=== PATIENT | male | born 1980 | race Caucasian/White ===

== ENCOUNTER 2017-08-04 11:48 | Emergency (ER) | payer SELFPAY ==
[~2017-08-04] VITALS: Ht 182.9 cm; Wt 113.4 kg
[~2017-08-04 11:48] MED LIST: CEPH500C PO; DESV100T PO; HYDR1TAB PO; OLAN20TA3 PO
[2017-08-04] MEDS ORDERED: LACTATED RINGERS 1,000 ML IV ONE (13:09)
[2017-08-04] MEDS ORDERED: ONDANSETRON 4 MG/2 ML (SDV) Z0FRAN IVP ONE (13:15)
[2017-08-04] MEDS ORDERED: fentaNYL INJECTION 100 MCG/2 ML AMP IVP ONE (13:15)
--- NOTE | 2017-08-04 13:19 | ED Abdominal Pain ---
General Chief Complaint: Abdominal/GI Problems Stated Complaint: STOMACH CRAMPS/DIZZINESS Nursing Triage Note: ARRIVED VIA AMB TO ROOM 05. COMPLAINS OF SEVERE ABD PAIN WITH N/V STARTING TODAY. PT STATES FOR THE PAST MONTH HE HAS BEEN PASSING BRIGHT RED BLOOD IN HIS STOOL. 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 He also started having some waves of nausea after the pain started. He's never had a pain like this before and he denies any trauma or pain while lifting or doing his job. He is not anything abnormal recently. He denies any surgeries on his abdomen. He's vomited but had no blood in it. He says for the past several months he's had some blood in the stool both on wiping and in the water. Never had that worked up and he attributed to hemorrhoids. He is having no chest pain or shortness of breath. He's had no fevers, chills, diarrhea, constipation. A bowel movement yesterday was normal. Allergies and Home Medications Allergies Coded Allergies: No Known Drug Allergies (Verified , 06/07/08) Home Medications No Active Prescriptions or Reported Meds Review of Systems Constitutional: No chills, No fever EENTM: No Blurred Vision, No Double Vision Respiratory: Denies Cough, Denies Shortness of Air Cardiovascular: Denies Chest Pain, Denies Edema, Denies Palpitations, Denies Syncope Gastrointestinal: Denies Constipated, Denies Diarrhea, Nausea, Rectal Bleeding , Vomiting Genitourinary: Denies Burning, Denies Discharge Musculoskeletal: No back pain, No joint pain Skin: No pruritus, No rash Psychiatric/Neurological: Denies Headache, Denies Numbness Past Uilycfn-Tqhnym-Kkjcsg Hx Patient Social History Alcohol Use: Denies Use Recreational Drug Use: No Smoking Status: Never a Smoker Type Used: Electronic/Vapor Recent Foreign Travel: No Contact w/Someone Who Travel: No Recent Infectious Disease Expo: No Recent Hopitalizations: No Surgeries History of Surgeries: Yes (VASECTOMY) Respiratory History of Respiratory Disorde: No Cardiovascular History of Cardiac Disorders: No Neurological History of Neurological Disord: No Genitourinary History of Genitourinary Disor: No Gastrointestinal History of Gastrointestinal Di: No Musculoskeletal History of Musculoskeletal Dis: No Endocrine History of Endocrine Disorders: No HEENT History of HEENT Disorders: No Cancer History of Cancer: No Psychosocial History of Psychiatric Problem: No Integumentary History of Skin or Integumenta: No Physical Exam Vital Signs VS - Last 72 Hours, by Label 08/04/17 12:51 Temp 98.0 Pulse 86 Resp 18 B/P (MAP) 136/80 (98) Pulse Ox 98 O2 Delivery Room Air Capillary Refill : Less Than 3 Seconds General Appearance: WD/WN, moderate distress HEENT: PERRL/EOMI, normal ENT inspection, pharynx normal Neck: non-tender, supple, normal inspection Respiratory: chest non-tender, lungs clear, normal breath sounds, no respiratory distress, no accessory muscle use Cardiovascular: normal peripheral pulses, regular rate, rhythm, no edema Peripheral Pulses: 2+ Radial Pulses (R), 2+ Radial Pulses (L) Gastrointestinal: abnormal bowel sounds (hypoactive), guarding, No rebound, tenderness (especially mid epigastric and bilateral upper quadrants.), other ( negative for Gonzalez sign and no tenderness over McBurney's point.) Neurologic/Psychiatric: alert, oriented x 3 Skin: normal color, warm/dry Progress/Results/Core Measures Results/Orders Lab Results Laboratory Tests Test 08/04/17 13:10 08/04/17 14:35 Range/Units White Blood Count 15.3 H 4.3-11.0 10^3/uL Red Blood Count 5.33 4.35-5.85 10^6/uL Hemoglobin 15.8 13.3-17.7 G/DL Hematocrit 49 40-54 % Mean Corpuscular Volume 91 80-99 FL Mean Corpuscular Hemoglobin 30 25-34 PG Mean Corpuscular Hemoglobin Concent 32 32-36 G/DL Red Cell Distribution Width 13.8 10.0-14.5 % Platelet Count 307 130-400 10^3/uL Mean Platelet Volume 9.7 7.4-10.4 FL Neutrophils (%) (Auto) 91 H 42-75 % Lymphocytes (%) (Auto) 4 L 12-44 % Monocytes (%) (Auto) 5 0-12 % Eosinophils (%) (Auto) 0 0-10 % Basophils (%) (Auto) 0 0-10 % Neutrophils # (Auto) 13.9 H 1.8-7.8 X 10^3 Lymphocytes # (Auto) 0.5 L 1.0-4.0 X 10^3 Monocytes # (Auto) 0.8 0.0-1.0 X 10^3 Eosinophils # (Auto) 0.0 0.0-0.3 10^3/uL Basophils # (Auto) 0.0 0.0-0.1 10^3/uL Neutrophils % (Manual) 81 % Lymphocytes % (Manual) 8 % Monocytes % (Manual) 6 % Eosinophils % (Manual) 0 % Basophils % (Manual) 0 % Band Neutrophils 5 % Blood Morphology Comment NORMAL Sodium Level 143 135-145 MMOL/L Potassium Level 4.3 3.6-5.0 MMOL/L Chloride Level 106 98-107 MMOL/L Carbon Dioxide Level 25 21-32 MMOL/L Anion Gap 12 5-14 MMOL/L Blood Urea Nitrogen 18 7-18 MG/DL Creatinine 0.91 0.60-1.30 MG/DL Estimat Glomerular Filtration Rate > 60 BUN/Creatinine Ratio 20 Glucose Level 100 70-105 MG/DL Calcium Level 9.3 8.5-10.1 MG/DL Magnesium Level 1.9 1.8-2.4 MG/DL Total Bilirubin 1.1 H 0.1-1.0 MG/DL Aspartate Amino Transf (AST/SGOT) 20 5-34 U/L Alanine Aminotransferase (ALT/SGPT) 33 0-55 U/L Alkaline Phosphatase 76 40-136 U/L C-Reactive Protein High Sensitivity 0.67 H 0.00-0.50 MG/DL Total Protein 7.8 6.4-8.2 GM/DL Albumin 4.7 H 3.2-4.5 GM/DL Lipase 20 8-78 U/L Serum Alcohol < 10 <10 MG/DL Urine Color YELLOW Urine Clarity CLEAR Urine pH 5 5-9 Urine Specific [place] 1.020 1.016-1.022 Urine Protein NEGATIVE NEGATIVE Urine Glucose (UA) NEGATIVE NEGATIVE Urine Ketones 2+ H NEGATIVE Urine Nitrite NEGATIVE NEGATIVE Urine Bilirubin NEGATIVE NEGATIVE Urine Urobilinogen NORMAL NORMAL MG/DL Urine Leukocyte Esterase 1+ H NEGATIVE Urine RBC (Auto) NEGATIVE NEGATIVE Urine RBC 0-2 /HPF Urine WBC 0-2 /HPF Urine Squamous Epithelial Cells RARE /HPF Urine Crystals NONE /LPF Urine Bacteria NEGATIVE /HPF Urine Casts NONE /LPF Urine Mucus MODERATE H /LPF Urine Culture Indicated NO Urine Opiates Screen NEGATIVE NEGATIVE Urine Oxycodone Screen NEGATIVE NEGATIVE Urine Methadone Screen NEGATIVE NEGATIVE Urine Propoxyphene Screen NEGATIVE NEGATIVE Urine Barbiturates Screen NEGATIVE NEGATIVE Ur Tricyclic Antidepressants Screen NEGATIVE NEGATIVE Urine Phencyclidine Screen NEGATIVE NEGATIVE Urine Amphetamines Screen NEGATIVE NEGATIVE Urine Methamphetamines Screen NEGATIVE NEGATIVE Urine Benzodiazepines Screen NEGATIVE NEGATIVE Urine Cocaine Screen NEGATIVE NEGATIVE Urine Cannabinoids Screen POSITIVE H NEGATIVE My Orders Orders - JONEL SHAH Alcohol (08/04/17 13:09) Cbc With Automated Diff (08/04/17 13:09) Comprehensive Metabolic Panel (08/04/17 13:09) Hs C Reactive Protein (08/04/17 13:09) Drug Screen Stat (Urine) (08/04/17 13:09) Lipase (08/04/17 13:09) Magnesium (08/04/17 13:09) Ua Culture If Indicated (08/04/17 13:09) Saline Lock/Iv-Start (08/04/17 13:09) Lactated Ringers (Lr 1000 Ml Iv Solution (08/04/17 13:09) Fentanyl Injection (Sublimaze Injection (08/04/17 13:15) Ondansetron Injection (Zofran Injectio (08/04/17 13:15) Manual Differential (08/04/17 13:10) Ketorolac Injection (Toradol Injection) (08/04/17 14:30) Occult Blood Stool (08/04/17 14:47) Ct Abd/Pelv W (Appendicitis) (08/04/17 15:27) Iohexol Injection (Omnipaque 350 Mg/Ml 1 (08/04/17 16:15) Ns (Ivpb) (Sodium Chloride 0.9% Ivpb Bag (08/04/17 16:15) Medications Given in ED Current Medications Medications Dose Ordered Sig/Luis Route Start Time Stop Time Status Last Admin Dose Admin Fentanyl Citrate 50 mcg ONCE ONCE IVP 08/04/17 13:15 08/04/17 13:16 DC 08/04/17 13:25 50 MCG Iohexol 100 ml ONCE ONCE IV 08/04/17 16:15 08/04/17 16:17 DC 1/8/18 16:15 100 ML Ketorolac Tromethamine 15 mg ONCE ONCE IVP 08/04/17 14:30 08/04/17 14:32 DC 08/04/17 14:35 15 MG Lactated Ringer's 1,000 ml @ 0 mls/hr Q0M ONCE IV 08/04/17 13:09 08/04/17 13:15 DC 08/04/17 13:25 1,000 MLS/HR Ondansetron HCl 4 mg ONCE ONCE IVP 08/04/17 13:15 08/04/17 13:16 DC 08/04/17 13:24 4 MG Sodium Chloride 100 ml ONCE ONCE IV 08/04/17 16:15 08/04/17 16:17 DC 08/04/17 16:15 80 ML Vital Signs/I&O Vital Sign - Last 12Hours 08/04/17 12:51 Temp 98.0 Pulse 86 Resp 18 B/P (MAP) 136/80 (98) Pulse Ox 98 O2 Delivery Room Air Blood Pressure Mean: 98 Progress Note #1: Time: 13:18 Progress Note We'll get a fecal occult blood test, a sick labs to include a lipase, urinalysis. If there is blood in the urine will think about a kidney stone if his pain is not controlled with some fentanyl and Zofran for nausea and will get a CT scan of the abdomen with contrast. Progress Note #2: Time: 17:12 Progress Note Patient's pain and nausea are improved since he got here. His CT exam and lab exam are unrevealing. His disease then is most likely due to a virus probable gastroenteritis and likely eventually colitis. We have discussed appropriate therapy in order to try to go home with a couple days off and some medications for his pain and nausea and if this is not improving in 2-3 days he should follow-up with a primary care or urgent care. Diagnostic Imaging Diagonstic Imaging: CT (with contrast) Plain Films/CT/US/NM/MRI: abdomen, pelvis Comments NAME: GRIS MARTINEZ MED REC#: [id number] PHYSICIAN: JONEL SHAH MD CC: SILVIA ENGLE MD; JONEL SHAH Page 1 of 1 RADIOLOGY REPORT VIA [facility], [place], [place] CC: SILVIA ENGLE MD; JONEL SHAH Page 1 of 1 RADIOLOGY REPORT NAME: GRIS MARTINEZ [facility] REC#: [id number] PT STATUS: REG ER : 1980 PHYSICIAN: JONEL SHAH MD ADMIT DATE: 08/04/17/ER Signed Date of Exam: 08/04/17 CT ABD/PELV W (APPENDICITIS) PROCEDURE: CT abdomen and pelvis with contrast, rule out appendicitis. TECHNIQUE: Multiple contiguous axial images were obtained through the abdomen and pelvis after the administration of intravenous contrast. INDICATION: Bilateral flank pain. FINDINGS: Lung bases are clear. Liver is unremarkable. Gallbladder contains a small polyp and/or calculus on the inferior wall. The pancreas appears normal. The spleen has some small calcific granulomas. Adrenals are normal. There is no hydronephrosis near the kidney. There are no masses seen in the kidneys. There is no noncontrast study obtained so a small calculus near the kidney cannot be excluded. Aorta and IVC appear normal. There is no lymphadenopathy. The appendix is normal. Small bowel is not dilated. There is some diverticulosis of the colon but no evidence of diverticulitis. Urinary bladder, prostate and seminal vesicles appear normal. IMPRESSION: Uncomplicated diverticulosis of the colon. Small gallbladder polyp versus calculus. No acute abnormality seen. Dictated by: Dictated on workstation # [id number] Dict: 08/04/17 1628 Trans: 08/04/17 1654 Interpreted by: SILVIA ENGLE MD Electronically signed by: SILVIA ENGLE MD 08/04/17 1654 Reviewed: Reviewed by Me Departure Impression Impression: Primary Impression: Gastroenteritis Disposition: 01 HOME, SELF-CARE Condition: Stable Departure-Patient Inst. Decision time for Depature: 17:14 Referrals: NO,LOCAL PHYSICIAN (PCP/Family) Primary Care Physician Patient Instructions: Acute Abdomen (Belly Pain), Adult (DC), GASTROENTERITIS- 6Y-ADULT Add. Discharge Instructions: Your goal is drink plenty of fluids control your pain with Tylenol 1000 mg every 8 hours as needed and or ibuprofen 800 mg every 8 hours or Naprosyn/Aleve 2 capsules twice a day. If this does not control your pain you can use heating pads and creams as well as one tablet of hydrocodone every 6 hours as needed. Endocrine will cause constipation. If you just have the nausea vomiting and abdominal pain this will last about 2-3 days ago and its own. If you develop diarrhea that may add a day or 2. If you have diarrhea go ahead and continue to hydrate you're self and if he goes on for more than 24 hours you may take 2 tablets of loperamide/Imodium and then every 4 hours after that one more tablet until it is under control. If your pain or nausea ever become unbearable despite the medications or if you develop a fever above 102.5 that does not respond to Tylenol Motrin he should return to the ER for further evaluation. All discharge instructions reviewed with patient and/or family. Voiced understanding. Scripts Ondansetron (Ondansetron Odt) 4 Mg Tab.rapdis 4 MG PO Q6H Y for NAUSEA/VOMITING, #8 TAB 0 Refills Prov: JONEL SHAH 08/04/17 Hydrocodone Bit/Acetaminophen (Hydrocodone/Acetaminophen 5/325mg Tablet) 1 Tab Tab 1 EACH PO Q6H Y for BREAKTHROUGH PAIN, #15 TAB 0 Refills Prov: JONEL SHAH 08/04/17 Work/School Note: Work Release Form Date Seen in the Emergency Department: Aug 04, 2017 Return to Work: Aug 07, 2017 Restrictions: No Restrictions JONEL SHAH Aug 04, 2017 13:19
[2017-08-04 13:26] LABS: BASOPHILS % (AUTO) 0 % (0-10); EOSINOPHILS % (AUTO) 0 % (0-10); HEMATOCRIT 49 % (40-54); HEMOGLOBIN 15.8 G/DL (13.3-17.7); LYMPHOCYTES # (AUTO) 0.5 X 10^3 (1.0-4.0); LYMPHOCYTES % (AUTO) 4 % (12-44); MEAN CORPUSCULAR HEMOGLOBIN 30 PG (25-34); MEAN CORPUSCULAR HGB CONC 32 G/DL (32-36); MEAN CORPUSCULAR VOLUME 91 FL (80-99); MEAN PLATELET VOLUME 9.7 FL (7.4-10.4); MONOCYTES # (AUTO) 0.8 X 10^3 (0.0-1.0); MONOCYTES % (AUTO) 5 % (0-12); NEUTROPHILS # (AUTO) 13.9 X 10^3 (1.8-7.8); NEUTROPHILS % (AUTO) 91 % (42-75); PLATELET COUNT 307 10^3/uL (130-400); RED BLOOD COUNT 5.33 10^6/uL (4.35-5.85); RED CELL DISTRIBUTION WIDTH 13.8 % (10.0-14.5); WHITE BLOOD COUNT 15.3 10^3/uL (4.3-11.0)
[2017-08-04 13:44] LABS: ALANINE AMINOTRANSFERASE 33 U/L (0-55); ALBUMIN 4.7 GM/DL (3.2-4.5); ALKALINE PHOSPHATASE 76 U/L (40-136); BILIRUBIN,TOTAL 1.1 MG/DL (0.1-1.0); BUN/CREATININE RATIO 20; CALCIUM 9.3 MG/DL (8.5-10.1); CARBON DIOXIDE 25 MMOL/L (21-32); CHLORIDE 106 MMOL/L (98-107); CREATININE SERUM 0.91 MG/DL (0.60-1.30); GFR ESTIMATED > 60; GLUCOSE 100 MG/DL (70-105); LIPASE 20 U/L (8-78); MAGNESIUM 1.9 MG/DL (1.8-2.4); POTASSIUM 4.3 MMOL/L (3.6-5.0); SODIUM 143 MMOL/L (135-145); TOTAL PROTEIN 7.8 GM/DL (6.4-8.2)
[2017-08-04] MEDS ORDERED: KETOROLAC 30 MG/ML VIAL IVP ONE (14:30)
[2017-08-04 14:54] LABS: BILIRUBIN,URINE NEGATIVE (NEGATIVE); CLARITY,URINE CLEAR; COLOR,URINE YELLOW; GLUCOSE, URINE (UA) NEGATIVE (NEGATIVE); KETONES,URINE 2+ (NEGATIVE); LEUKOCYTE ESTERASE ,URINE 1+ (NEGATIVE); NITRITE,URINE NEGATIVE (NEGATIVE); PH,URINE 5 (5-9); PROTEIN,URINE NEGATIVE (NEGATIVE); UROBILINOGEN,URINE NORMAL (NORMAL)
[2017-08-04 15:03] LABS: BAND NEUTROPHILS 5 %; BASOPHILS % (MANUAL) 0 %; EOSINOPHILS % (MANUAL) 0 %; LYMPHOCYTES % (MANUAL) 8 %; MONOCYTES % (MANUAL) 6 %; NEUTROPHILS % (MANUAL) 81 %; RBC MORPH NORMAL
[2017-08-04 15:05] LABS: AMPHETAMINE SCREEN, URINE NEGATIVE (NEGATIVE); BARBITURATE SCREEN URINE NEGATIVE (NEGATIVE); BENZODIAZEPINES SCREEN URINE NEGATIVE (NEGATIVE); CANNABINOID SCREEN, URINE POSITIVE (NEGATIVE); COCAINE SCREEN URINE NEGATIVE (NEGATIVE); METHADONE STAT NEGATIVE (NEGATIVE); METHAMPHETAMINE SCREEN URINE S NEGATIVE (NEGATIVE); OPIATE SCREEN URINE NEGATIVE (NEGATIVE); OXYCODONE STAT NEGATIVE (NEGATIVE); PROPOXYPHENE STAT NEGATIVE (NEGATIVE); TRICYCLIC ANTIDEPRESSANTS SCRE NEGATIVE (NEGATIVE)
[2017-08-04 15:18] LABS: BACTERIA,URINE NEGATIVE /HPF; RBC,URINE 0-2 /HPF; SQUAMOUS EPITHELIAL CELL,UR RARE /HPF; WBC,URINE 0-2 /HPF
[2017-08-04] MEDS ORDERED: NS 100 ML (IVPB) BAG IV ONE (16:15)
[2017-08-04] MEDS ORDERED: IOHEXOL 350 MG/ML 100 ML (OMNIPAQUE 350) VIAL IV ONE (16:15)
--- NOTE | 2017-08-04 16:50 | Diagnostic Imaging Report ---
PROCEDURE: CT abdomen and pelvis with contrast, rule out appendicitis. TECHNIQUE: Multiple contiguous axial images were obtained through the abdomen and pelvis after the administration of intravenous contrast. INDICATION: Bilateral flank pain. FINDINGS: Lung bases are clear. Liver is unremarkable. Gallbladder contains a small polyp and/or calculus on the inferior wall. The pancreas appears normal. The spleen has some small calcific granulomas. Adrenals are normal. There is no hydronephrosis near the kidney. There are no masses seen in the kidneys. There is no noncontrast study obtained so a small calculus near the kidney cannot be excluded. Aorta and IVC appear normal. There is no lymphadenopathy. The appendix is normal. Small bowel is not dilated. There is some diverticulosis of the colon but no evidence of diverticulitis. Urinary bladder, prostate and seminal vesicles appear normal. IMPRESSION: Uncomplicated diverticulosis of the colon. Small gallbladder polyp versus calculus. No acute abnormality seen. Dictated by: Dictated on workstation # [id number]
[2017-08-04] MEDS ORDERED: ONDA4TAB11 PO (17:18)
[2017-08-04] MEDS ORDERED: ACHD5005 PO (17:18)
[2017-08-04 17:24] VITALS: BP 128/89
== END 2017-08-04 17:24 | disposition home or self-care (01) ==
LOC: EDUNIT# 11:48 → ER 11:50
DX: K52.9 Noninfective gastroenteritis and colitis, unspecified (principal); Z98.52 Vasectomy status
CPT/HCPCS: 36415; 74177; 80053; 80306; 80320; 81000; 83690; 83735; 85007; 85027; 86141; 96361; 96374; 96375

== ENCOUNTER 2018-01-25 09:45 | Emergency (ER) | payer SELFPAY ==
[~2018-01-25] VITALS: Ht 182.9 cm; Wt 95.3 kg
[~2018-01-25 09:45] MED LIST changes: +ACHD5005 PO; +ONDA4TAB11 PO
--- OUTSIDE RECORDS SUMMARY | 2018-01-25 09:50 | XMS REPORT ---
Author Author LOCO [facility] Address Unknown Care Team Providers Care Interior Plant Caretaker Name Role Phone AALIYAH LOCO Unavailable PROBLEMS Type Condition ICD9-CM Code BAE76-DQ Code Onset Dates Condition Status SNOMED Code Problem Bipolar disorder, unspecified 296.80 Active 36797597 Problem Anxiety state, unspecified 300.00 Active 774214457 Problem Encounter for long-term (current) use of other medications V58.69 Active 185525280 Problem Social phobia 300.23 Active 59042918 Problem Priapism 607.3 Active 4825783 ALLERGIES Substance Reaction Event Type Date Status N.K.D.A. Unknown Non Drug Allergy Jun, Unknown SOCIAL HISTORY No smoking Hx information available PLAN OF CARE Activity Details Follow Up prn Reason:hygiene VITAL SIGNS Blood pressure systolic 114 mmHg 2016-07-10 Blood pressure diastolic 74 mmHg 2016-07-10 MEDICATIONS No Known Medications RESULTS No Results PROCEDURES Procedure Date Ordered Related Diagnosis Body Site LTD ORAL EVALUATION - PROBLEM FOCUS Jul 10, 2016 INTRAORL-PERIAPICAL 1 FILM [id number] Jul 10, 2016 EXTRAC ERUPTED TOOTH/EXPOSED ROOT Jul 10, 2016 BITEWING - SINGLE FILM Jul 10, 2016 IMMUNIZATIONS No Known Immunizations
--- NOTE | 2018-01-25 10:45 | ED Upper Extremity ---
General Chief Complaint: Upper Extremity Stated Complaint: HAND INJURY Nursing Triage Note: TO ROOM REPORTS THAT WAS HELPING FRINED MOVE WHEN GOT HIS L HAND SMASHED BETWEEN DRESSER AND U HAIL. C/O PAIN IN L HAND. Nursing Sepsis Screen: No Definite Risk Exam Limitations: no limitations History of Present Illness Date Seen by Provider: Jan 25, 2018 Time Seen by Provider: 10:39 Initial Comments The patient reports that he was helping a friend move. A dresser became unbalanced and pinched him with the left hand between the dresser and the tail gate of the truck. He reports pain largely over the MP joint of the second finger. There is some pain to movement as well. Pain/Injury Location: left 2nd finger Method of Injury: direct blow Allergies and Home Medications Allergies Coded Allergies: No Known Drug Allergies (Verified , 06/07/08) Home Medications No Active Prescriptions or Reported Meds Patient Home Medication List Home Medication List Reviewed: Yes Constitutional: see HPI EENTM: no symptoms reported Cardiovascular: no symptoms reported Gastrointestinal: no symptoms reported Musculoskeletal: see HPI Past Vvqnttv-Znfrna-Kooxxt Hx Patient Social History Alcohol Use: Denies Use Recreational Drug Use: No Smoking Status: Current Everyday Smoker Type Used: Electronic/Vapor Recent Foreign Travel: No Contact w/Someone Who Travel: No Recent Infectious Disease Expo: No Recent Hopitalizations: No Past Medical History Surgeries: Yes (VASECTOMY) Respiratory: No Cardiac: No Neurological: No Genitourinary: No Gastrointestinal: No Musculoskeletal: No Endocrine: No HEENT: No Cancer: No Psychosocial: No Integumentary: No Physical Exam Vital Signs Vital Signs - First Documented 01/25/18 09:45 Temp 98.4 Pulse 79 Resp 18 B/P (MAP) 147/77 (100) Pulse Ox 97 O2 Delivery Room Air Capillary Refill : Less Than 3 Seconds General Appearance: WD/WN, no apparent distress Neck: full range of motion Cardiovascular: normal peripheral pulses, regular rate, rhythm, no edema, no gallop, no JVD, no murmur Respiratory: chest non-tender, lungs clear, normal breath sounds, no respiratory distress, no accessory muscle use Comments There is mild erythema and swelling over the MP joint of the dorsal aspect of the second finger on the left. Progress/Results/Core Measures Results/Orders My Orders Orders - GEOVANI COLEMAN MD Hand, Left, 3 Views (01/25/18 09:51) Vital Signs/I&O 01/25/18 09:45 Temp 98.4 Pulse 79 Resp 18 B/P (MAP) 147/77 (100) Pulse Ox 97 O2 Delivery Room Air Blood Pressure Mean: 100 Departure Communication (Admissions) Although the patient has tenderness over the left second MP joint, it would appear there is no injury found there. The x-rays that seemed to show a minimally displaced angular fracture at the proximal aspect of the distal phalanx of the thumb. There is no tenderness to this area to palpation Impression Primary Impression: contusion left hand Additional Impression: nondisplaced fracture of distal phalanx of the thumb Disposition: HOME, SELF-CARE Condition: Stable/Unchanged Departure-Patient Inst. Decision time for Depature: 10:44 Referrals: NO,LOCAL PHYSICIAN (PCP/Family) Primary Care Physician Add. Discharge Instructions: All discharge instructions reviewed with patient and/or family. Voiced understanding. Elevate hand above elbow when possible. Use ice pack 3 or 4 times today. Scripts No Active Prescriptions or Reported Meds GEOVANI COLEMAN MD Jan 25, 2018 10:45
[2018-01-25 10:50] VITALS: BP 147/77
--- NOTE | 2018-01-26 12:04 | Diagnostic Imaging Report ---
INDICATION: Smashed left hand one day earlier. Swelling to the second and third metacarpal regions. TECHNIQUE: 3 views left hand, 10:22 AM. CORRELATION STUDY: None FINDINGS: There is lucency involving the base of the distal phalanx of the thumb suspect for nondisplaced fracture. Appears to extend into the interphalangeal joint. The remaining osseous structures intact. Alignment otherwise anatomic. Mild joint space narrowing of the interphalangeal joint. IMPRESSION: 1. Findings suggestive of nondisplaced fracture involving the proximal phalanx of the thumb. Remaining osseous structures intact, otherwise unremarkable. Dictated by: Dictated on workstation # [id number]
== END 2018-01-25 10:50 | disposition home or self-care (01) ==
LOC: EDUNIT# 09:45 → ER 09:46
DX: S62.525A Nondisplaced fracture of distal phalanx of left thumb, initial encounter for closed fracture (principal); F17.210 Nicotine dependence, cigarettes, uncomplicated; Z98.52 Vasectomy status; W23.1XXA Caught, crushed, jammed, or pinched between stationary objects, initial encounter
CPT/HCPCS: 73130

== ENCOUNTER 2018-12-22 03:47 | Emergency (ER) | payer OTHER ==
[~2018-12-22] VITALS: Ht 182.9 cm; Wt 99.8 kg
--- OUTSIDE RECORDS SUMMARY | 2018-12-22 03:52 | XMS REPORT ---
Author Author Migration, Doctor Organization [facility] Address Unknown Phone Unavailable Care Team Providers Care Nuclear Weapons Specialist Name Role Phone Migration, Doctor Unavailable Unavailable PROBLEMS Type Condition ICD9-CM Code MGR22-MS Code Onset Dates Condition Status SNOMED Code Problem Bipolar disorder, current episode mixed, moderate F31.62 Active 482786451 Problem DALIA (generalized anxiety disorder) F41.1 Active 68078714 Problem Polydipsia R63.1 Active 86081193 ALLERGIES No Information ENCOUNTERS Encounter Location Date Diagnosis [place] [id number] [place] [address] Jan, [place] [id number] [place] [address] Jan, Bipolar disorder, current episode mixed, moderate F31.62 and DALIA (generalized anxiety disorder) F41.1 [place] [id number] [place] [address] Jan, [place] [id number] [place] [address] Jan, [facility], [place] [id number] [place] [address] Jan, [place] [id number] [place] [address] Jan, Bipolar disorder, current episode mixed, moderate F31.62 and DALIA (generalized anxiety disorder) F41.1 [facility], [place] [id number] [place] [address] Dec, Bipolar disorder, current episode mixed, moderate F31.62 [facility], [place] [address] [place] [address] Dec, Polydipsia R63.1 ; Bipolar disorder, current episode mixed, moderate F31.62 ; At risk for sexually transmitted disease due to unprotected sex Z91.89 ; Medication management Z79.899 and Weight loss R63.4 [facility] [address] [id number] 14 Jun, 2016 Dental examination Z01.20 and Dental caries K02.9 [facility], [place] [address], [place] [address] 14 Oct, 2014 [facility], [place] [id number] [place] [address] Oct, [facility], [place] [address] [place] [address] Mar, [facility], [place] [id number] [place] [address] Mar, [facility], [place] [id number] [place] [address] Mar, [facility], [place] [id number] [place] [address] Mar, [facility], [place] [address] [place] [address] Feb, [facility], [place] [id number] [address] Feb, [facility], [place] [address], [place] [address] Jan, [facility], [place] [address], [place] [address] Jan, [facility], [place] [address] [place] [address] Dec, [facility], [place] [id number] [place] [address] Dec, [facility], [place] [address], [place] [address] Dec, [facility] [place] [facility] [address] [id number] [place] [address] Dec, [facility] [place] [facility] [address] [id number] [place] [address] November, [facility] [place] [facility] [address] [id number] [place] [address] November, [facility] [place] [facility] [address] [id number] [place] [address] Oct, [facility] [place] [facility] [address] [id number] [place] [address] Oct, [facility] [place] [facility] [address] [id number] [place] [address] Oct, [facility] [place] [facility] [address] [id number] [place] [address] Oct, [facility] [place] [facility] [address] [id number] [place] [address] Oct, [facility] [place] [facility] [address] [id number] [place] [address] Oct, [facility] [place] [facility] [address] [id number] [place] [address] Oct, [facility] [place] [facility] [address] [id number] [place] [address] Oct, [facility] [place] [facility] [address] [id number] [place] [address] Oct, [facility] [place] [facility] [address] [id number] [place] [address] Oct, [facility] [place] [facility] [address] [id number] [place] [address] Oct, [facility] [place] [facility] [address] [id number] [place] [address] Oct, [facility] [place] [facility] [address] [id number] [place] [address] Oct, [facility], [place] [address] [facility] [id number] [place] [address] Oct, IMMUNIZATIONS No Known Immunizations SOCIAL HISTORY Never Assessed REASON FOR VISIT [facility] [place] PLAN OF CARE VITAL SIGNS MEDICATIONS Medication Instructions Dosage Frequency Start Date End Date Duration Status Loxapine Succinate 10 mg 1 Capsule by Oral route 2 times per day Dec, Active Vistaril 25 mg 1 capsule by Oral route 2 times per day anxiety Jan, Active [place] Carbonate 300 mg 1 capsule by Oral route 1 time per day qAM2 Capsule by Oral route 1 time per day qHS Dec, Active RESULTS No Results PROCEDURES No Known procedures INSTRUCTIONS MEDICATIONS ADMINISTERED No Known Medications MEDICAL (GENERAL) HISTORY Type Description Date Medical History bipolar disorder Medical History hx of head concussions Surgical History vasectomy 12/2004 Hospitalization History [facility] for attempted suicide 07/2003
--- OUTSIDE RECORDS SUMMARY | 2018-12-22 03:52 | XMS REPORT ---
Author Author Migration, Doctor Organization [facility] Address Unknown Phone Unavailable Care Team Providers Care Customs Entry Clerk Name Role Phone Migration, Doctor Unavailable Unavailable PROBLEMS Type Condition ICD9-CM Code TOR97-HI Code Onset Dates Condition Status SNOMED Code Problem Bipolar disorder, current episode mixed, moderate F31.62 Active 634860537 Problem DALIA (generalized anxiety disorder) F41.1 Active 69187586 Problem Polydipsia R63.1 Active 55745565 ALLERGIES No Information ENCOUNTERS Encounter Location Date Diagnosis [place] [id number] [place] [address] Jan, [place] [id number] [place] [address] Jan, Bipolar disorder, current episode mixed, moderate F31.62 and DALIA (generalized anxiety disorder) F41.1 [place] [id number] [place] [address] Jan, [place] [id number] [place] [address] Jan, [facility] [id number] [place] [address] Jan, [place] [id number] [place] [address] Jan, Bipolar disorder, current episode mixed, moderate F31.62 and DALIA (generalized anxiety disorder) F41.1 [facility] [id number] [place] [address] Dec, Bipolar disorder, current episode mixed, moderate F31.62 [facility] [address] [place] [address] Dec, Polydipsia R63.1 ; Bipolar disorder, current episode mixed, moderate F31.62 ; At risk for sexually transmitted disease due to unprotected sex Z91.89 ; Medication management Z79.899 and Weight loss R63.4 [facility] [address] [id number] 14 Jun, 2016 Dental examination Z01.20 and Dental caries K02.9 [facility] [address], [place] [address] 14 Oct, 2014 [facility] [id number] [place] [address] Oct, [facility] [id number] [place] [address] Mar, [facility] [id number] [place] [address] Mar, [facility] [id number] [place] [address] Mar, [facility] [id number] [place] [address] Mar, [facility] [address] [place] [address] Feb, [facility] [id number], [place] [address] Feb, [facility] [address], [place] [address] Jan, [facility] [address], [place] [address] Jan, [facility] [id number] [place] [address] Dec, [facility] [id number] [place] [address] Dec, [facility] [address], [place] [address] Dec, [facility] [place] [facility] [address] [id number] [place] [address] Dec, [facility] [place] [facility] [address] [id number] [place] [address] November, [facility] [place] [facility] [address] [id number] [place] [address] November, [facility] [place] [facility] [address] [id number] [place] [address] Oct, [facility] [place] [facility] [address] [id number] [place] [address] Oct, [facility] [place] [facility] [address] [id number] [place] [address] Oct, [facility] [place] [facility] [address] [id number] [place] [address] Oct, [facility] [place] [facility] [address] [id number] [place] [address] Oct, [facility] [place] [facility] [address] [id number] [place] [address] Oct, [facility] [place] [facility] [address] [id number] [place] [address] Oct, [facility] [place] [facility] [address] [id number] [place] [address] Oct, [facility] [place] [facility] [address] [id number] [place] [address] Oct, [facility] [place] [facility] [address] [id number] [place] [address] Oct, [facility] [place] [facility] [address] [id number] [place] [address] Oct, [facility] [place] [facility] [address] [id number] [place] [address] Oct, [facility] [place] [facility] [address] [id number] [place] [address] Oct, [facility] [address] [facility] [id number] [place] [address] Oct, IMMUNIZATIONS No Known Immunizations SOCIAL HISTORY Never Assessed REASON FOR VISIT [facility] PLAN OF CARE VITAL SIGNS MEDICATIONS Unknown Medications RESULTS No Results PROCEDURES No Known procedures INSTRUCTIONS MEDICATIONS ADMINISTERED No Known Medications MEDICAL (GENERAL) HISTORY Type Description Date Medical History bipolar disorder Medical History hx of head concussions Surgical History vasectomy 12/2004 Hospitalization History gonz[facility] for attempted suicide 07/2003
--- OUTSIDE RECORDS SUMMARY | 2018-12-22 03:53 | XMS REPORT ---
Author Author FRANCESCA MANCINI [facility] Address [address] [place] [address] Care Team Providers Care Ground Systems Engineer Name Role Phone FRANCESCA MANCINI Unavailable PROBLEMS Type Condition ICD9-CM Code IZJ77-VI Code Onset Dates Condition Status SNOMED Code Problem DALIA (generalized anxiety disorder) F41.1 Active 87494538 Problem Bipolar disorder, current episode mixed, moderate F31.62 Active 776338630 Problem Polydipsia R63.1 Active 42578681 ALLERGIES No Information ENCOUNTERS Encounter Location Date Diagnosis [place] [address] [place] [address] Jan, [facility] [id number] [place] [address] Jan, Bipolar disorder, current episode mixed, moderate F31.62 and DALIA (generalized anxiety disorder) F41.1 [place] [id number] [place] [address] Jan, [place] [address] [place] [address] Jan, [facility] [id number] [place] [address] Jan, [facility] [id number] [place] [address] Jan, Bipolar disorder, current episode mixed, moderate F31.62 and DALIA (generalized anxiety disorder) F41.1 [facility] [address] [place] [address] Dec, Bipolar disorder, current episode mixed, moderate F31.62 [facility] [id number] [place] [address] Dec, Polydipsia R63.1 ; Bipolar disorder, current episode mixed, moderate F31.62 ; At risk for sexually transmitted disease due to unprotected sex Z91.89 ; Medication management Z79.899 and Weight loss R63.4 [facility] [id number] [id number] 14 Jun, 2016 Dental examination Z01.20 and Dental caries K02.9 [facility] [address], [place] [address] 14 Oct, 2014 [facility] [address], [place] [address] Oct, [facility] [address] [place] [address] Mar, [facility] [address], [place] [address] Mar, [facility] [address], [place] [address] Mar, [facility] [id number] [address] Mar, [facility] [address], [place] [address] Feb, [facility] [address], [place] [address] Feb, [facility] [address], [place] [address] Jan, [facility] [id number], [place] [address] Jan, [facility] [address], [place] [address] Dec, [facility] [id number], [place] [address] Dec, [facility] [place] [facility] [address] [id number] [place] [address] Dec, [facility] [address] [id number] [place] [address] Dec, [facility] [place] [facility] [address] [id number] [place] [address] November, [facility] [address] [id number] [place] [address] November, [facility] [place] [facility] [address] [id number] [place] [address] Oct, [facility] [place] [facility] [address] [id number] [place] [address] Oct, [facility] [place] [facility] [address] [id number] [place] [address] Oct, [facility] [address] [id number] [place] [address] Oct, [facility] [address] [id number] [place] [address] Oct, [facility] [place] [facility] [address] [id number] [place] [address] Oct, [facility] [address] [id number] [place] [address] Oct, [facility] [place] [facility] [address] [id number] [place] [address] Oct, [facility] [place] [facility] [address] [id number] [place] [address] Oct, [facility] [place] [facility] [address] [id number] [place] [address] Oct, [facility] [place] [facility] [address] [id number] [place] [address] Oct, [facility] [place] [facility] [address] [id number] [place] [address] Oct, [facility] [address] [facility] [id number] [place] [address] Oct, [facility] [address] [facility] [id number] [place] [address] Oct, IMMUNIZATIONS No Known Immunizations SOCIAL HISTORY Never Assessed REASON FOR VISIT intake PLAN OF CARE Activity Details Follow Up Next Available Reason: F/U VITAL SIGNS MEDICATIONS Unknown Medications RESULTS No Results PROCEDURES Procedure Date Ordered Result Body Site Psych diagnostic evaluation, established patient January 21, 2018 INSTRUCTIONS MEDICATIONS ADMINISTERED No Known Medications MEDICAL (GENERAL) HISTORY Type Description Date Medical History bipolar disorder Medical History hx of head concussions Surgical History vasectomy 12/2004 Hospitalization History gonzales for attempted suicide 07/2003
--- OUTSIDE RECORDS SUMMARY | 2018-12-22 03:53 | XMS REPORT ---
Author Author NUBIA PHIL [facility] Address [address] [place] [address] Care Team Providers Care Informaticist Name Role Phone NUBIAPHIL Unavailable PROBLEMS Type Condition ICD9-CM Code TOW48-SH Code Onset Dates Condition Status SNOMED Code Problem DALIA (generalized anxiety disorder) F41.1 Active 80506407 Problem Bipolar disorder, current episode mixed, moderate F31.62 Active 720340286 Problem Polydipsia R63.1 Active 06819234 ALLERGIES No Known Allergies ENCOUNTERS Encounter Location Date Diagnosis [place] [id number] [place] [address] Jan, [facility] [id number] [place] [address] Jan, Bipolar disorder, current episode mixed, moderate F31.62 and DALIA (generalized anxiety disorder) F41.1 [facility] [id number] [place] [address] Jan, [place] [id number] [place] [address] Jan, [facility] [id number] [place] [address] Jan, [facility] [id number] [place] [address] Jan, Bipolar disorder, current episode mixed, moderate F31.62 and DALIA (generalized anxiety disorder) F41.1 [facility] [id number] [place] [address] Dec, Bipolar disorder, current episode mixed, moderate F31.62 [facility] [id number] [place] [address] Dec, Polydipsia R63.1 ; Bipolar disorder, current episode mixed, moderate F31.62 ; At risk for sexually transmitted disease due to unprotected sex Z91.89 ; Medication management Z79.899 and Weight loss R63.4 [facility] [address] [id number] [address] 14 Jun, 2016 Dental examination Z01.20 and Dental caries K02.9 [facility] [id number], [place] [address] 14 Oct, 2014 [facility] [address], [place] [address] Oct, [facility] [address], [place] [address] Mar, [facility] [address], [place] [address] Mar, [facility] [address], [place] [address] Mar, [facility] [id number], [place] [address] Mar, [facility] [address], [place] [address] Feb, [facility] [id number], [place] [address] Feb, [facility] [id number], [place] [address] Jan, [facility] [id number], [place] [address] Jan, [facility] [id number], [place] [address] Dec, [facility] [id number], [place] [address] Dec, [facility] [place] [facility] [address] [id number] [place] [address] Dec, [facility] [place] [facility] [address] [id number] [place] [address] Dec, [facility] [place] [facility] [address] [id number] [place] [address] November, [facility] [place] [facility] [address] [id number] [place] [address] November, [facility] [place] [facility] [address] [id number] [place] [address] Oct, [facility] [place] [facility] [address] [id number] [place] [address] Oct, [facility] [place] [facility] [address] [id number] [place] [address] Oct, [facility] [place] [facility] [address] [id number] [place] [address] Oct, [facility] [address] [id number] [place] [address] Oct, [facility] [place] [facility] [address] [id number] [place] [address] Oct, [facility] [place] [facility] [address] [id number] [place] [address] Oct, [facility] [place] [facility] [address] [id number] [place] [address] Oct, [facility] [place] [facility] [address] [id number] [place] [address] Oct, [facility] [place] [facility] [address] [id number] [place] [address] Oct, [facility] [place] [facility] [address] [id number] [place] [address] Oct, [facility] [place] [facility] [address] [id number] [place] [address] Oct, [facility] [address] [facility] [id number] [place] [address] Oct, [facility] [address] [facility] [id number] [place] [address] Oct, IMMUNIZATIONS No Known Immunizations SOCIAL HISTORY Never Assessed REASON FOR VISIT intake-Pretty VOGEL PLAN OF CARE Activity Details Follow Up 3 Weeks Reason: f/u VITAL SIGNS Height 72 in 2018-01-27 Weight 223.6 lbs 2018-01-27 Heart Rate 84 bpm 2018-01-27 Respiratory Rate 18 2018-01-27 BMI 30.32 kg/m2 2018-01-27 Blood pressure systolic 128 mmHg 2018-01-27 Blood pressure diastolic 68 mmHg 2018-01-27 MEDICATIONS Medication Instructions Dosage Frequency Start Date End Date Duration Status Vraylar 1.5 MG Orally Once a day 1 capsule 24h Jan, 30 day(s) Active RESULTS No Results PROCEDURES No Known procedures INSTRUCTIONS MEDICATIONS ADMINISTERED No Known Medications MEDICAL (GENERAL) HISTORY Type Description Date Medical History bipolar disorder Medical History hx of head concussions Surgical History vasectomy 12/2004 Hospitalization History [facility] for attempted suicide 07/2003
--- OUTSIDE RECORDS SUMMARY | 2018-12-22 03:53 | XMS REPORT ---
Author Author NUBIA PHIL [facility] Address [address] [place] [address] Care Team Providers Care Weatherization Operations Manager Name Role Phone NUBIAPHIL Unavailable PROBLEMS Type Condition ICD9-CM Code [id number] Code Onset Dates Condition Status SNOMED Code Problem DALIA (generalized anxiety disorder) F41.1 Active 65231841 Problem Bipolar disorder, current episode mixed, moderate F31.62 Active 168787042 Problem Polydipsia R63.1 Active 48391134 ALLERGIES No Information ENCOUNTERS Encounter Location Date Diagnosis [place] [id number] [place] [address] Jan, [facility] [id number] [place] [address] Jan, Bipolar disorder, current episode mixed, moderate F31.62 and DALIA (generalized anxiety disorder) F41.1 [facility] [id number] [place] [address] Jan, [place] [id number] [place] [address] Jan, [facility] [id number] [place] [address] Jan, [facility] [id number] [place] [address] Jan, Bipolar disorder, current episode mixed, moderate F31.62 and DALIA (generalized anxiety disorder) F41.1 [facility] [id number] [place] [address] Dec, Bipolar disorder, current episode mixed, moderate F31.62 [facility] [id number] [place] [address] Dec, Polydipsia R63.1 ; Bipolar disorder, current episode mixed, moderate F31.62 ; At risk for sexually transmitted disease due to unprotected sex Z91.89 ; Medication management Z79.899 and Weight loss R63.4 [facility] [id number] [id number] 14 Jun, 2016 Dental examination Z01.20 [address] Dental caries K02.9 [facility] [address], [place] [address] [address], [address] [facility] [address], [place] [address] Oct, [facility] [id number] [address] Mar, [facility] [id number] [address] Mar, [facility] [id number] [address] Mar, [facility] [id number] [address] Mar, [facility] [id number] [address] Feb, [facility] [id number] [address] Feb, [facility] [id number] [address] Jan, [facility] [address] [id number] [address] Jan, [facility] [address] [id number], [place] [address] Dec, [facility] [address], [place] [address] Dec, [facility] [place] [facility] [address] [id number] [place] [address] Dec, [facility] [address] [id number] [place] [address] Dec, [facility] [place] [facility] [address] [id number] [place] [address] November, [facility] [address] [id number] [place] [address] November, [facility] [place] [facility] [address] [id number] [place] [address] Oct, [facility] [place] [facility] [address] [id number] [place] [address] Oct, [facility] [place] [facility] [address] [id number] [place] [address] Oct, [facility] [place] [facility] [address] [id number] [place] [address] Oct, [facility] [address] [id number] [place] [address] Oct, [facility] [place] [facility] [address] [id number] [place] [address] Oct, [facility] [address] [id number] [place] [address] Oct, [facility] [place] [facility] [address] [id number] [place] [address] Oct, [facility] [place] [facility] [address] [id number] [place] [address] Oct, [facility] [place] [facility] [address] [id number] [place] [address] Oct, [facility] [place] [facility] [address] [id number] [place] [address] Oct, [facility] [place] [facility] [address] [id number] [place] [address] Oct, [facility] [address] [facility] [id number] [place] [address] Oct, [facility] [address] [facility] [id number] [place] [address] Oct, IMMUNIZATIONS No Known Immunizations SOCIAL HISTORY Never Assessed REASON FOR VISIT paperwork PLAN OF CARE VITAL SIGNS MEDICATIONS Unknown Medications RESULTS No Results PROCEDURES No Known procedures INSTRUCTIONS MEDICATIONS ADMINISTERED No Known Medications MEDICAL (GENERAL) HISTORY Type Description Date Medical History bipolar disorder Medical History hx of head concussions Surgical History vasectomy 12/2004 Hospitalization History [facility] for attempted suicide 07/2003
--- OUTSIDE RECORDS SUMMARY | 2018-12-22 03:53 | XMS REPORT ---
Author Author NUBIA PHIL [facility] Address [address] [place] [address] Care Team Providers Care Passenger Screener Name Role Phone NUBIAPHIL Unavailable PROBLEMS Type Condition ICD9-CM Code [id number] Code Onset Dates Condition Status SNOMED Code Problem DALIA (generalized anxiety disorder) F41.1 Active 08831502 Problem Bipolar disorder, current episode mixed, moderate F31.62 Active 720250337 Problem Polydipsia R63.1 Active 97245099 ALLERGIES No Known Allergies ENCOUNTERS Encounter Location Date Diagnosis [place] [id number] [place] [address] Jan, [facility] [id number] [place] [address] Jan, Bipolar disorder, current episode mixed, moderate F31.62 and DALIA (generalized anxiety disorder) F41.1 [facility] [id number] [place] [address] Jan, [place] [id number] [place] [address] Jan, [facility] [id number] [place] [address] Jan, [facility] [id number] [place] [address] Jan, Bipolar disorder, current episode mixed, moderate F31.62 and DALIA (generalized anxiety disorder) F41.1 [facility] [id number] [place] [address] Dec, Bipolar disorder, current episode mixed, moderate F31.62 [facility] [id number] [place] [address] Dec, Polydipsia R63.1 ; Bipolar disorder, current episode mixed, moderate F31.62 ; At risk for sexually transmitted disease due to unprotected sex Z91.89 ; Medication management Z79.899 and Weight loss R63.4 [facility] [address] [id number] [id number] 14 Jun, 2016 Dental examination Z01.20 and Dental caries K02.9 [facility] [id number], [place] [address] 14 Oct, 2014 [facility] [address], [place] [address] Oct, [facility] [address], [place] [address] Mar, [facility] [address], [place] [address] Mar, [facility] [address], [place] [address] Mar, [facility] [id number], [place] [address] Mar, [facility] [address], [place] [address] Feb, [facility] [id number], [place] [address] Feb, [facility] [id number], [place] [address] Jan, [facility] [id number], [place] [address] Jan, [facility] [id number], [place] [address] Dec, [facility] [id number], [place] [address] Dec, [facility] [place] [facility] [address] [id number] [place] [address] Dec, [facility] [place] [facility] [address] [id number] [place] [address] Dec, [facility] [place] [facility] [address] [id number] [place] [address] November, [facility] [place] [facility] [address] [id number] [place] [address] November, [facility] [place] [facility] [address] [id number] [place] [address] Oct, [facility] [place] [facility] [address] [id number] [place] [address] Oct, [facility] [place] [facility] [address] [id number] [place] [address] Oct, [facility] [place] [facility] [address] [id number] [place] [address] Oct, [facility] [address] [id number] [place] [address] Oct, [facility] [place] [facility] [address] [id number] [place] [address] Oct, [facility] [place] [facility] [address] [id number] [place] [address] Oct, [facility] [place] [facility] [address] [id number] [place] [address] Oct, [facility] [place] [facility] [address] [id number] [place] [address] Oct, [facility] [place] [facility] [address] [id number] [place] [address] Oct, [facility] [place] [facility] [address] [id number] [place] [address] Oct, [facility] [place] [facility] [address] [id number] [place] [address] Oct, [facility] [address] [facility] [id number] [place] [address] Oct, [facility] [address] [facility] [id number] [place] [address] Oct, IMMUNIZATIONS No Known Immunizations SOCIAL HISTORY Never Assessed REASON FOR VISIT f/u Lalo VOGEL PLAN OF CARE Activity Details Follow Up 4 Weeks Reason: f/u VITAL SIGNS Height 72 in 2018-02-13 Weight 225.8 lbs 2018-02-13 Heart Rate 74 bpm 2018-02-13 Respiratory Rate 18 2018-02-13 BMI 30.62 kg/m2 2018-02-13 Blood pressure systolic 128 mmHg 2018-02-13 Blood pressure diastolic 70 mmHg 2018-02-13 MEDICATIONS Medication Instructions Dosage Frequency Start Date End Date Duration Status Lamictal 25 MG Orally once a day at bedtime for two weeks, then 2 tablets at bedtime 1 tablet Jan, 30 day(s) Active RESULTS No Results PROCEDURES No Known procedures INSTRUCTIONS MEDICATIONS ADMINISTERED No Known Medications MEDICAL (GENERAL) HISTORY Type Description Date Medical History bipolar disorder Medical History hx of head concussions Surgical History vasectomy 12/2004 Hospitalization History [facility] for attempted suicide 07/2003
--- OUTSIDE RECORDS SUMMARY | 2018-12-22 03:53 | XMS REPORT ---
Author Author NUBIA PHIL [facility] Address [address] [place] [address] Care Team Providers Care Account Development Executive Name Role Phone NUBIAPHIL Unavailable PROBLEMS Type Condition ICD9-CM Code [id number] Code Onset Dates Condition Status SNOMED Code Problem DALIA (generalized anxiety disorder) F41.1 Active 44469898 Problem Bipolar disorder, current episode mixed, moderate F31.62 Active 660638731 Problem Polydipsia R63.1 Active 52008052 ALLERGIES No Information ENCOUNTERS Encounter Location Date Diagnosis [place] [id number] [place] [address] Jan, [facility] [id number] [place] [address] Jan, Bipolar disorder, current episode mixed, moderate F31.62 and DALIA (generalized anxiety disorder) F41.1 [facility] [id number] [place] [address] Jan, [place] [id number] [place] [address] Jan, [facility] [id number] [place] [address] Jan, [facility] [id number] [place] [address] Jan, Bipolar disorder, current episode mixed, moderate F31.62 and DALIA (generalized anxiety disorder) F41.1 [facility] [id number] [place] [address] Dec, Bipolar disorder, current episode mixed, moderate F31.62 [facility] [id number] [place] [address] Dec, Polydipsia R63.1 ; Bipolar disorder, current episode mixed, moderate F31.62 ; At risk for sexually transmitted disease due to unprotected sex Z91.89 ; Medication management Z79.899 and Weight loss R63.4 [facility] [id number] [id number] 14 Jun, 2016 Dental examination Z01.20 and Dental caries K02.9 [facility] [address], [place] [address] 14 Oct, 2014 [facility] [address], [place] [address] Oct, [facility] [address], [place] [address] Mar, [facility] [address], [place] [address] Mar, [facility] [address], [place] [address] Mar, [facility] [address], [place] [address] Mar, [facility] [address], [place] [address] Feb, [facility] [address], [place] [address] Feb, [facility] [address], [place] [address] Jan, [facility] [address] [id number], [place] [address] Jan, [facility] [address] [id number], [place] [address] Dec, [facility] [address], [place] [address] Dec, [facility] [place] [facility] [address] [id number] [place] [address] Dec, [facility] [address] [id number] [place] [address] Dec, [facility] [place] [facility] [address] [id number] [place] [address] November, [facility] [address] [id number] [place] [address] November, [facility] [place] [facility] [address] [id number] [place] [address] Oct, [facility] [place] [facility] [address] [id number] [place] [address] Oct, [facility] [place] [facility] [address] [id number] [place] [address] Oct, [facility] [place] [facility] [address] [id number] [place] [address] Oct, [facility] [address] [id number] [place] [address] Oct, [facility] [place] [facility] [address] [id number] [place] [address] Oct, [facility] [address] [id number] [place] [address] Oct, [facility] [place] [facility] [address] [id number] [place] [address] Oct, [facility] [place] [facility] [address] [id number] [place] [address] Oct, [facility] [place] [facility] [address] [id number] [place] [address] Oct, [facility] [place] [facility] [address] [id number] [place] [address] Oct, [facility] [place] [facility] [address] [id number] [place] [address] Oct, [facility] [address] [facility] [id number] [place] [address] Oct, [facility] [address] [facility] [id number] [place] [address] Oct, IMMUNIZATIONS No Known Immunizations SOCIAL HISTORY Never Assessed REASON FOR VISIT FYI only PLAN OF CARE VITAL SIGNS MEDICATIONS Unknown Medications RESULTS No Results PROCEDURES No Known procedures INSTRUCTIONS MEDICATIONS ADMINISTERED No Known Medications MEDICAL (GENERAL) HISTORY Type Description Date Medical History bipolar disorder Medical History hx of head concussions Surgical History vasectomy 12/2004 Hospitalization History [facility] for attempted suicide 07/2003
--- OUTSIDE RECORDS SUMMARY | 2018-12-22 03:53 | XMS REPORT ---
Author Author NUBIA PHIL [facility] Address [address] [place] [address] Care Team Providers Care Waste Management Engineer Name Role Phone NUBIAPHIL Unavailable PROBLEMS Type Condition ICD9-CM Code [id number] Code Onset Dates Condition Status SNOMED Code Problem DALIA (generalized anxiety disorder) F41.1 Active 39923700 Problem Bipolar disorder, current episode mixed, moderate F31.62 Active 942790213 Problem Polydipsia R63.1 Active 69932833 ALLERGIES No Information ENCOUNTERS Encounter Location Date Diagnosis [place] [id number] [place] [address] Jan, [facility] [id number] [place] [address] Jan, Bipolar disorder, current episode mixed, moderate F31.62 and DALIA (generalized anxiety disorder) F41.1 [facility] [id number] [place] [address] Jan, [place] [id number] [place] [address] Jan, [facility] [id number] [place] [address] Jan, [facility] [id number] [place] [address] Jan, Bipolar disorder, current episode mixed, moderate F31.62 and DALIA (generalized anxiety disorder) F41.1 [facility] [id number] [place] [address] Dec, Bipolar disorder, current episode mixed, moderate F31.62 [facility] [id number] [place] [address] Dec, Polydipsia R63.1 ; Bipolar disorder, current episode mixed, moderate F31.62 ; At risk for sexually transmitted disease due to unprotected sex Z91.89 ; Medication management Z79.899 and Weight loss R63.4 [facility] [id number] [id number] 14 Jun, 2016 Dental examination Z01.20 and Dental caries K02.9 [facility] [address], [place] [address] 14 Oct, 2014 [facility] [address], [place] [address] Oct, [facility] [address], [place] [address] Mar, [facility] [address], [place] [address] Mar, [facility] [address], [place] [address] Mar, [facility] [address], [place] [address] Mar, [facility] [address], [place] [address] Feb, [facility] [address], [place] [address] Feb, [facility] [address], [place] [address] Jan, [facility] [address] [id number], [place] [address] Jan, [facility] [address] [id number], [place] [address] Dec, [facility] [address], [place] [address] Dec, [facility] [place] [facility] [address] [id number] [place] [address] Dec, [facility] [address] [id number] [place] [address] Dec, [facility] [place] [facility] [address] [id number] [place] [address] November, [facility] [address] [id number] [place] [address] November, [facility] [place] [facility] [address] [id number] [place] [address] Oct, [facility] [place] [facility] [address] [id number] [place] [address] Oct, [facility] [place] [facility] [address] [id number] [place] [address] Oct, [facility] [place] [facility] [address] [id number] [place] [address] Oct, [facility] [address] [id number] [place] [address] Oct, [facility] [place] [facility] [address] [id number] [place] [address] Oct, [facility] [address] [id number] [place] [address] Oct, [facility] [place] [facility] [address] [id number] [place] [address] Oct, [facility] [place] [facility] [address] [id number] [place] [address] Oct, [facility] [place] [facility] [address] [id number] [place] [address] Oct, [facility] [place] [facility] [address] [id number] [place] [address] Oct, [facility] [place] [facility] [address] [id number] [place] [address] Oct, [facility] [address] [facility] [id number] [place] [address] Oct, [facility] [address] [facility] [id number] [place] [address] Oct, IMMUNIZATIONS No Known Immunizations SOCIAL HISTORY Never Assessed REASON FOR VISIT release to drive PLAN OF CARE VITAL SIGNS MEDICATIONS Unknown Medications RESULTS No Results PROCEDURES No Known procedures INSTRUCTIONS MEDICATIONS ADMINISTERED No Known Medications MEDICAL (GENERAL) HISTORY Type Description Date Medical History bipolar disorder Medical History hx of head concussions Surgical History vasectomy 12/2004 Hospitalization History [facility] for attempted suicide 07/2003
--- OUTSIDE RECORDS SUMMARY | 2018-12-22 03:53 | XMS REPORT ---
Author Author NUBIA PHIL [facility] Address [address] [place] [address] Care Team Providers Care Business Development Engineer Name Role Phone NUBIAPHIL Unavailable PROBLEMS Type Condition ICD9-CM Code NFB00-QR Code Onset Dates Condition Status SNOMED Code Problem DALIA (generalized anxiety disorder) F41.1 Active 37075762 Problem Bipolar disorder, current episode mixed, moderate F31.62 Active 331656017 Problem Polydipsia R63.1 Active 02394967 ALLERGIES No Information ENCOUNTERS Encounter Location Date Diagnosis [place] [id number] [place] [address] Jan, [facility] [id number] [place] [address] Jan, Bipolar disorder, current episode mixed, moderate F31.62 and DALIA (generalized anxiety disorder) F41.1 [facility] [id number] [place] [address] Jan, [place] [id number] [place] [address] Jan, [facility] [id number] [place] [address] Jan, [facility] [id number] [place] [address] Jan, Bipolar disorder, current episode mixed, moderate F31.62 and DALIA (generalized anxiety disorder) F41.1 [facility] [id number] [place] [address] Dec, Bipolar disorder, current episode mixed, moderate F31.62 [facility] [id number] [place] [address] Dec, Polydipsia R63.1 ; Bipolar disorder, current episode mixed, moderate F31.62 ; At risk for sexually transmitted disease due to unprotected sex Z91.89 ; Medication management Z79.899 and Weight loss R63.4 [facility] [id number] [id number] 14 Jun, 2016 Dental examination Z01.20 and Dental caries K02.9 [facility] [address], [place] [address] 14 Oct, 2014 [facility] [address], [place] [address] Oct, [facility] [address], [place] [address] Mar, [facility] [address], [place] [address] Mar, [facility] [address], [place] [address] Mar, [facility] [address], [place] [address] Mar, [facility] [address], [place] [address] Feb, [facility] [address], [place] [address] Feb, [facility] [address], [place] [address] Jan, [facility] [id number], [place] [address] Jan, [facility] [id number], [place] [address] Dec, [facility] [address], [place] [address] Dec, [facility] [place] [facility] [address] [id number] [place] [address] Dec, [facility] [address] [id number] [place] [address] Dec, [facility] [place] [facility] [address] [id number] [place] [address] November, [facility] [address] [id number] [place] [address] November, [facility] [place] [facility] [address] [id number] [place] [address] Oct, [facility] [place] [facility] [address] [id number] [place] [address] Oct, [facility] [place] [facility] [address] [id number] [place] [address] Oct, [facility] [place] [facility] [address] [id number] [place] [address] Oct, [facility] [address] [id number] [place] [address] Oct, [facility] [place] [facility] [address] [id number] [place] [address] Oct, [facility] [address] [id number] [place] [address] Oct, [facility] [place] [facility] [address] [id number] [place] [address] Oct, [facility] [place] [facility] [address] [id number] [place] [address] Oct, [facility] [place] [facility] [address] [id number] [place] [address] Oct, [facility] [place] [facility] [address] [id number] [place] [address] Oct, [facility] [place] [facility] [address] [id number] [place] [address] Oct, [facility] [address] [facility] [id number] [place] [address] Oct, [facility] [address] [facility] [id number] [place] [address] Oct, IMMUNIZATIONS No Known Immunizations SOCIAL HISTORY [...]
--- OUTSIDE RECORDS SUMMARY | 2018-12-22 03:54 | XMS REPORT ---
Author Author MIGUELITO KINGSTON [facility] Address [address] [place] [address] Care Team Providers Care Social Media Marketing Manager Name Role Phone MIGUELITO KINGSTON Unavailable PROBLEMS Type Condition ICD9-CM Code QAN02-EE Code Onset Dates Condition Status SNOMED Code Problem DALIA (generalized anxiety disorder) F41.1 Active 85426432 Problem Bipolar disorder, current episode mixed, moderate F31.62 Active 310023498 Problem Polydipsia R63.1 Active 26087729 ALLERGIES No Known Allergies ENCOUNTERS Encounter Location Date Diagnosis [place] [id number] [place] [address] Jan, [place] [id number] [place] [address] Jan, Bipolar disorder, current episode mixed, moderate F31.62 and DALIA (generalized anxiety disorder) F41.1 [place] [id number] [place] [address] Jan, [place] [id number] [place] [address] Jan, [facility] [id number] [place] [address] Jan, [place] [id number] [place] [address] Jan, Bipolar disorder, current episode mixed, moderate F31.62 and DALIA (generalized anxiety disorder) F41.1 [facility] [id number] [place] [address] Dec, Bipolar disorder, current episode mixed, moderate F31.62 [facility] [id number] [place] [address] Dec, Polydipsia R63.1 ; Bipolar disorder, current episode mixed, moderate F31.62 ; At risk for sexually transmitted disease due to unprotected sex Z91.89 ; Medication management Z79.899 and Weight loss R63.4 [facility] [id number] [id number] 14 Jun, 2016 Dental examination Z01.20 and Dental caries K02.9 [facility] [address] [address] 14 Oct, 2014 [facility] [address] [place] [address] Oct, [facility] [address] [place] [address] Mar, [facility] [id number] [place] [address] Mar, [facility] [address] [place] [address] Mar, [facility] [id number] [address] Mar, [facility] [address] [address] Feb, [facility] [address] [address] Feb, [facility] [address] [address] Jan, [facility] [id number] [address] Jan, [facility] [id number] [place] [address] Dec, [facility] [address] [address] Dec, [facility] [id number] [place] [address] Dec, [facility] [place] [facility] [address] [id number] [place] [address] Dec, [facility] [place] [facility] [address] [id number] [place] [address] November, [facility] [place] [facility] [address] [id number] [place] [address] November, [facility] [place] [facility] [address] [id number] [place] [address] Oct, [facility] [place] [facility] [address] [id number] [place] [address] Oct, [facility] [place] [facility] [address] [id number] [place] [address] Oct, [facility] [place] [facility] [address] [id number] [place] [address] Oct, [facility] [place] [facility] [address] [id number] [place] [address] Oct, [facility] [place] [facility] [address] [id number] [place] [address] Oct, [facility] [place] [facility] [address] [id number] [place] [address] Oct, [facility] [place] [facility] [address] [id number] [place] [address] Oct, [facility] [place] [facility] [address] [id number] [place] [address] Oct, [facility] [place] [facility] [address] [id number] [place] [address] Oct, [facility] [place] [facility] [address] [id number] [place] [address] Oct, [facility] [place] [facility] [address] [id number] [place] [address] Oct, [facility] [address] [facility] [id number] [place] [address] Oct, [facility] [address] [facility] [id number] [place] [address] Oct, IMMUNIZATIONS No Known Immunizations SOCIAL HISTORY Never Assessed REASON FOR VISIT Establish Care, PT concerns with his weight loss, Also wanting STD testing done- Pretty VOGEL, PHQ2, AUDIT C PLAN OF CARE Activity Details Follow Up will call after lab Reason: VITAL SIGNS Height 72 in 2018-01-19 Weight 217.5 lbs 2018-01-19 Temperature 98.4 degrees Fahrenheit 2018-01-19 Heart Rate 74 bpm 2018-01-19 Respiratory Rate 18 2018-01-19 BMI 29.5 kg/m2 2018-01-19 Blood pressure systolic 132 mmHg 2018-01-19 Blood pressure diastolic 78 mmHg 2018-01-19 MEDICATIONS Unknown Medications RESULTS No Results PROCEDURES Procedure Date Ordered Result Body Site GLYCATED HEMOGLOBIN TEST January 19, 2018 COMPREHEN METABOLIC PANEL January 19, 2018 ASSAY THYROID STIM HORMONE January 19, 2018 No Charge January 19, 2018 VENIPUNCT, ROUTINE* January 19, 2018 INSTRUCTIONS MEDICATIONS ADMINISTERED No Known Medications MEDICAL (GENERAL) HISTORY Type Description Date Medical History bipolar disorder Medical History hx of head concussions Surgical History vasectomy 12/2004 Hospitalization History [facility] for attempted suicide 07/2003
[2018-12-22 04:03] VITALS: BP 133/79
--- NOTE | 2018-12-22 04:03 | NUR ---
PT COMES OUT OF ROOM TO NURSES DESK AND IS YELLING, "IS IT REALLY GOING TO TAKE THIS F*CKING LONG AT 4 O'CLOCK IN THE MORNING? THIS IS RIDICULOUS". PT INFORMED DR. WORKMAN WITH ANOTHER PT AT THIS TIME. PT THROWS OPEN ER DOORS TO EXIT YELLING, "F*CK YOU MOTHERF*CKERS. THIS IS THE STUPIDEST PLACE. F*CK YOU. F*CK THIS PLACE. F*CK [facility]. F*CK YOU MOTHERF*CKER." PT DID NOT SIGN AMA FORM. ER PHARMACY OPERATIONS SPECIALIST TOLD TO NOTIFY [place] IF PT RETURNS.
--- NOTE | 2018-12-22 04:11 | NUR ---
NOTIFIED [place] OF PT DESCRIPTION AND AGGRESSIVE AND THREATENING BEHAVIOR TOWARD STAFF WELL CONCERN FOR FEMALE WITH PT. PT HAD PREVIOUSLY STATED "I DON'T WANT HER BACK HERE, MAKE HER STAY OUT IN THE WAITING ROOM" WHEN PT WAS INITIALLY BROUGHT BACK TO ROOM 6. FEMALE WITH PT LEFT ED AND WENT OUTSIDE.
--- NOTE | 2018-12-22 04:13 | NUR ---
[place] PD HERE AND PATROLLED PARKING LOT AND SURROUNDING AREA BUT PT AND VEHICLE DESCRIPTION NOT SEEN AT THIS TIME.
== END 2018-12-22 04:03 | disposition left against medical advice (07) ==
LOC: EDUNIT# 03:47 → ER 03:48
DX: S62.92XA Unspecified fracture of left hand, initial encounter for closed fracture (principal); W19.XXXA Unspecified fall, initial encounter; Y92.009 Unspecified place in unspecified non-institutional (private) residence as the place of occurrence of the external cause
CPT/HCPCS: 99282

== ENCOUNTER 2018-12-23 12:50 | Emergency (ER) | payer OTHER ==
[~2018-12-23] VITALS: Ht 182.9 cm; Wt 99.8 kg
[2018-12-23] MEDS ORDERED: LIDOCAINE 1% INJ 20 ML 20 ML VIAL INJ ONE (13:00)
[2018-12-23] MEDS ORDERED: TETANUS,DIPTH,PERTUSS P/F (BOOSTRIX) 0.5 ML VIAL IM ONE (13:00)
--- NOTE | 2018-12-23 13:30 | NUR ---
patient is resting quietly with eyes closed, denies needs at this time. frequent monitoring maintained.
[2018-12-23 13:59] LABS: BASOPHILS % (AUTO) 0 % (0-10); EOSINOPHILS % (AUTO) 0 % (0-10); HEMATOCRIT 40 % (40-54); HEMOGLOBIN 13.7 G/DL (13.3-17.7); LYMPHOCYTES # (AUTO) 0.8 X 10^3 (1.0-4.0); LYMPHOCYTES % (AUTO) 5 % (12-44); MEAN CORPUSCULAR HEMOGLOBIN 29 PG (25-34); MEAN CORPUSCULAR HGB CONC 34 G/DL (32-36); MEAN CORPUSCULAR VOLUME 86 FL (80-99); MEAN PLATELET VOLUME 9.1 FL (7.4-10.4); MONOCYTES # (AUTO) 1.1 X 10^3 (0.0-1.0); MONOCYTES % (AUTO) 7 % (0-12); NEUTROPHILS # (AUTO) 13.6 X 10^3 (1.8-7.8); NEUTROPHILS % (AUTO) 88 % (42-75); PLATELET COUNT 318 10^3/uL (130-400); RED CELL DISTRIBUTION WIDTH 13.5 % (10.0-14.5); WHITE BLOOD COUNT 15.5 10^3/uL (4.3-11.0)
--- NOTE | 2018-12-23 14:00 | NUR ---
CHECKED ON PATIENT DENIES NEEDS AT THIS TIME. RESTING QUIETLY DENIES PAIN
[2018-12-23 14:17] LABS: ALANINE AMINOTRANSFERASE 29 U/L (0-55); ALBUMIN 4.3 GM/DL (3.2-4.5); ALKALINE PHOSPHATASE 70 U/L (40-136); BILIRUBIN,TOTAL 1.7 MG/DL (0.1-1.0); BUN/CREATININE RATIO 16; CALCIUM 9.4 MG/DL (8.5-10.1); CARBON DIOXIDE 23 MMOL/L (21-32); CHLORIDE 107 MMOL/L (98-107); CREATININE SERUM 0.94 MG/DL (0.60-1.30); GFR ESTIMATED > 60; GLUCOSE 116 MG/DL (70-105); POTASSIUM 4.2 MMOL/L (3.6-5.0); SALICYLATE < 5.0 MG/DL (5.0-20.0); SODIUM 140 MMOL/L (135-145); TOTAL PROTEIN 6.9 GM/DL (6.4-8.2)
[2018-12-23 14:22] LABS: ACETAMINOPHEN < 10 UG/ML (10-30)
--- NOTE | 2018-12-23 14:43 | NUR ---
LUNCH ORDERD FOR PT.
[2018-12-23 14:45] LABS: LYMPHOCYTES % (MANUAL) 8 %; MONOCYTES % (MANUAL) 6 %; NEUTROPHILS % (MANUAL) 86 %; RBC MORPH NORMAL
[2018-12-23 14:52] LABS: CLARITY,URINE CLEAR; COLOR,URINE YELLOW; GLUCOSE, URINE (UA) NEGATIVE (NEGATIVE); KETONES,URINE 3+ (NEGATIVE); LEUKOCYTE ESTERASE ,URINE 1+ (NEGATIVE); NITRITE,URINE NEGATIVE (NEGATIVE); PH,URINE 6 (5-9); PROTEIN,URINE 2+ (NEGATIVE); UROBILINOGEN,URINE 4 MG/DL (NORMAL)
--- NOTE | 2018-12-23 15:00 | NUR ---
LUNCH GIVEN TO PT.
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
[2018-12-23 15:07] LABS: AMPHETAMINE SCREEN, URINE NEGATIVE (NEGATIVE); BARBITURATE SCREEN URINE NEGATIVE (NEGATIVE); BENZODIAZEPINES SCREEN URINE NEGATIVE (NEGATIVE); CANNABINOID SCREEN, URINE POSITIVE (NEGATIVE); COCAINE SCREEN URINE NEGATIVE (NEGATIVE); METHADONE STAT NEGATIVE (NEGATIVE); METHAMPHETAMINE SCREEN URINE S POSITIVE (NEGATIVE); OPIATE SCREEN URINE POSITIVE (NEGATIVE); OXYCODONE STAT NEGATIVE (NEGATIVE); PROPOXYPHENE STAT NEGATIVE (NEGATIVE); TRICYCLIC ANTIDEPRESSANTS SCRE NEGATIVE (NEGATIVE)
[2018-12-23 15:19] LABS: BACTERIA,URINE FEW /HPF; BILIRUBIN,URINE 1+ (NEGATIVE)
--- NOTE | 2018-12-23 16:15 | NUR ---
patient is resting quietly with eyes closed, denies needs at this time. frequent monitoring maintained.
--- NOTE | 2018-12-23 17:00 | NUR ---
CHECKED ON PATIENT DENIES NEEDS AT THIS TIME. RESTING QUIETLY DENIES PAIN
[2018-12-23 17:34] VITALS: BP 115/76
--- NOTE | 2018-12-23 18:06 | NUR ---
ATTEMPTED TO CALL [facility] PER HIS REQUEST. NO ANSWER AT NUMBER GIVEN [phone]
== END 2018-12-23 17:38 ==
LOC: EDUNIT# 12:50 → ER 12:58
DX: S61.511A Laceration without foreign body of right wrist, initial encounter (principal); S61.512A Laceration without foreign body of left wrist, initial encounter; F31.9 Bipolar disorder, unspecified; F17.290 Nicotine dependence, other tobacco product, uncomplicated; Z98.52 Vasectomy status; Z23 Encounter for immunization; X78.1XXA Intentional self-harm by knife, initial encounter
CPT/HCPCS: 12002; 36415; 80053; 80306; 80320; 80329; 81000; 84443; 85007; 85027; 87088; 90471; 90715; 93005